=== PATIENT | female | born 1955 | race Caucasian/White ===

== ENCOUNTER 2024-12-28 10:50 | Outpatient (CLI) | payer MEDICARE, BC ==
--- NOTE | 2024-12-29 00:05 | CONSULTATION ---
DATE OF CONSULTATION: 12/28/2024 DICTATING PHYSICIAN: Makayla Bear M.S., [facility] MODIFIED BARIUM SWALLOW STUDY REPORT REFERRING PHYSICIAN: José Aleman MD HISTORY OF PRESENT ILLNESS: The patient is a 69-year-old female and consents to this evaluation. In history obtained from the patient and medical records, the patient reports a globus sensation on the left side of her throat. She reports that it has been present for the past 2-3 years and has gotten worse with time. She notes that it is there at all times of the day, but is especially worse when she lays down to go to bed at night. She feels like it can choke her when she is lying down or when she is sitting up in the morning. She has had both a flexible fiberoptic laryngoscopy and CT of the neck, both were negative. She denies coughing or choking on food and liquids. The patient has a history of right thyroid nodule. CURRENT DIET: In terms of caffeine, the patient drinks coffee all day long and reports that this is usually about 4 cups. She also drinks hot water just to make her throat feel better and she said that this is why she drinks that much coffee as the warm liquid feels good in her throat. She does not utilize tobacco products or drink alcohol. She consumes a chocolate in actual chocolate pieces once a week, but she also has a chocolate protein drink on a daily basis. In terms of dairy products, the patient has milk on a daily basis. She has it in the evening to take her medications and she has a protein drink in the morning. She reports that she uses the milk and protein shake because her pills get stuck in her throat. A typical breakfast consists of the protein drink. She does not snack in the morning. Lunch she typically does not have but if she does, it might be a chili, a tuna sandwich, or a hot dog. She does not snack in the afternoon. Dinner is eaten between 5:00 and 7:00 p.m. and may be chicken, sometimes in the form of a wrap, hamburgers, or pasta. She has that milk drink with her pills between 8:00 and 9:00 p.m. and goes to bed between 10:00 and 11:00 p.m. MEDICATIONS: Trazodone 150 mg once daily orally, levothyroxine 75 mcg once daily orally, montelukast sodium 10 mg once daily orally, atorvastatin 40 mg once daily orally, hydrochlorothiazide 125 mg once daily orally, bupurone HCL 10 mg twice daily orally, fluoxetine HCL 10 mg twice daily orally once a day, vitamin 50+ once daily orally, vitamin D3 125 mcg once daily orally, Biotin 500 mcg once daily orally, CoQ10 100 mg once daily orally, Ashwagandha 500 mg once daily orally, vitamin B6 50 mg once daily orally, Tylenol as needed. PARAMETERS: The patient is seated in a lateral 90-degree view and administered the usual protocol of thin and nectar thick liquids, puree and solid consistencies as well as self-regulated boluses of thin liquids from a cup. RESULTS: The patient was easily able to transfer the bolus from the anterior to the posterior oral cavity. There did not appear to be any difficulty with strength or range of motion of the tongue. In the pharyngeal stage of the swallow, swallow initiation was within functional limits. With the exception of the self-regulated bolus within the liquid from the cup, there was no residue noted after the tail of the bolus passed and for that self-regulated bolus, there was a very mild amount in the pharyngeal cavity that was cleared with spontaneous second swallows. Tongue base retraction was adequate. Elevation of the hyothyroid complex was accomplished with full range of motion. Anterior movement of the posterior pharyngeal wall was observed. PES opening was within functional limits. At no time was the patient noted to penetrate or aspirate on any of the bolus sizes or consistencies. ANTERIOR, POSTERIOR VIEW: In the AP plane, the bolus splits symmetrically between the piriform sinuses and there was proximal movement of the boluses noted to the level of the clavicle. 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 This finding can explain why the patient has signs and symptoms of laryngopharyngeal reflux disease including the globus sensation and the throat clearing that she was doing when she was eating and drinking. During the study, the patient has several dietary triggers that are known to exacerbate signs and symptoms of laryngopharyngeal reflux disease. DIAGNOSES: R13.14, dysphagia, pharyngoesophageal phase; K21.9, gastroesophageal reflux disease. PATIENT EDUCATION: Immediately following modified barium swallow study, the patient and her were able to view the results. The normal anatomy of the swallowing mechanism was reviewed. She was able to see the proximal movement of the bolus in the AP view. She was immediately instructed in dietary precautions for laryngopharyngeal reflux disease with a written handout provided. She specifically was instructed on recommendations to begin reductions in the amount of caffeine she drinks, ultimately switching to one cup of decaf coffee per day and to cut out her dairy products as well. She indicated she would begin to make these dietary modifications for laryngopharyngeal reflux disease. She was also educated on utilizing applesauce or yogurt to take her pills as she feels that they stuck in her throat. RECOMMENDATIONS: It is recommended that the patient follow the aforementioned laryngopharyngeal reflux disease precautions in the form of dietary modification. LONG-TERM GOALS: The patient will maintain adequate hydration/nutrition with optimum safety and efficiency of swallow function on p.o. intake without overt signs and symptoms of aspiration for the highest possible diet level. FUNCTIONAL ORAL INTAKE: The FOIS was administered to establish and document a change in the functional eating activities of this patient over time. This is a 7-point scale with 1 indicating no oral intake and totally tube dependent and 7 indicating total oral intake with no restrictions. This patient received a 6, which indicates she has a total oral diet with multiple consistencies without special preparation but with specific food limitations and precautions. G-CODE: [id number]. Thank you very much for asking me to participate in the care of this kind patient. Should you have any questions regarding this evaluation or recommendations, please do not hesitate to contact me at [phone]. During this examination, 3 minutes and 1 second of fluoroscopy time and 15.15 CAK mGy were utilized. Makayla Bear M.S., [facility] TID: [id number] RECEIPT: [id number] JOSELO/RITA/BALTA CHAWLA
== END 2024-12-28 23:59 | disposition home or self-care (01) ==
LOC: RAD 10:50
PROVIDERS: ATTEND Otolaryngology
DX: R13.14 Dysphagia, pharyngoesophageal phase (principal); K21.9 Gastro-esophageal reflux disease without esophagitis; K22.2 Esophageal obstruction
CPT/HCPCS: 74230